=== PATIENT | male | born 1960 | race African-American/Black ===

== ENCOUNTER 2021-10-01 01:02 | Emergency (ER) | payer OTHER ==
[~2021-10-01] VITALS: Ht 170.2 cm; Wt 110.7 kg
[2021-10-01 01:05] VITALS: BP 139/90
--- NOTE | 2021-10-01 01:08 | NUR ---
to lobby a/w bed ambulatory
--- NOTE | 2021-10-01 02:45 | NUR ---
Patient returned back form radiology dept.
--- NOTE | 2021-10-01 03:05 | NUR ---
Patient ambulated to bed 3.
--- NOTE | 2021-10-01 03:19 | NUR ---
61/M C/O RIGHT INTERMITTENT THROBBING, HIP PAIN 8/10, RAD TO THE RLE. PATIENT STATED "IT FEELS LIKE TINGLING AND NUMBNESS ON THE AREA, IT COMES AND IT GOES. ITS BEEN ONGOING FOR YEARS AFTER I GOT A SPINAL INFECTION." GUEVARA STATED THAT HE HAS AN APPT TO SEE A SPINAL SPECIALIST LATER TODAY FOR FURTHER TX, JUST WANTED A SECOND OPINION TODAY. JACQUELINEZiyad IN BED, SIDE RAIL UP FOR SAFETY. ALL NEEDS MET AT THIS TIME. PMHX SPINAL INFECTION, MRSA, HTN, SHOULDER SX MEDS ALODIPINE, LISINOPRIL NKA
--- NOTE | 2021-10-01 03:42 | NUR ---
TIANNA PEREZ AT BEDSIDE.
[2021-10-01] MEDS ORDERED: oxyCODONE/APAP 5/325 MG 1 TAB TAB PO ONE (03:55)
[2021-10-01] MEDS ORDERED: predniSONE 20 MG TAB PO ONE (03:55)
[2021-10-01] MEDS ORDERED: ACET-5629 PO (03:59)
[2021-10-01] MEDS ORDERED: PRED20TA5 PO (03:59)
--- NOTE | 2021-10-01 04:05 | NUR ---
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
[2021-10-01 04:28] VITALS: BP 139/90
--- NOTE | 2021-10-01 04:28 | NUR ---
Patient discharged with v/s stable. Written and verbal after care instructions given and explained. Patient alert, oriented and verbalized understanding of instructions. Ambulatory with steady gait. All questions addressed prior to discharge. ID band removed. Patient advised to follow up with PMD. Rx of PERCOCET AND PREDNISONE given. Patient educated on indication of medication including possible reaction and side effects. Opportunity to ask questions provided and answered.
== END 2021-10-01 04:28 | disposition home or self-care (01) ==
LOC: MED 01:02
DX: M54.16 Radiculopathy, lumbar region (principal); I10 Essential (primary) hypertension; Z98.890 Other specified postprocedural states
CPT/HCPCS: 73502; 99283; J7512

== ENCOUNTER 2021-12-03 05:20 | Emergency (ER) | payer OTHER ==
[~2021-12-03] VITALS: Ht 170.2 cm; Wt 112.5 kg
[~2021-12-03 05:20] MED LIST: ACET-5629 PO; PRED20TA5 PO
[2021-12-03 05:33] VITALS: BP 149/100
--- NOTE | 2021-12-03 05:45 | NUR ---
pt ambulated to bed 11
--- NOTE | 2021-12-03 05:47 | NUR ---
dr garcia examining pt
--- NOTE | 2021-12-03 05:47 | NUR ---
61 y/o male bibs from home, c/o chronic pain to lower back. pt states the pain radiates mostly down right leg and some to left leg. 7/10 pain in lower back, 10/10 in right leg. pt states pain is constant and sharp. pt ambulates with use of cane. cms intact, no trauma noted, no deformity , redness, or bruising. hx: laminectomy, arthritis, htn nka med: sara james
[2021-12-03] MEDS ORDERED: KETOROLAC 30 MG/ML VIAL IM ONE (05:55)
[2021-12-03] MEDS ORDERED: BACLOFEN 10 MG TAB PO SCH (05:55)
[2021-12-03] MEDS ORDERED: predniSONE 20 MG TAB PO ONE (05:55)
[2021-12-03] MEDS ORDERED: LIDOCAINE 5% 1 EA PATCH TP SCH (05:55)
[2021-12-03] MEDS ORDERED: HYDR-5080 PO (05:58)
[2021-12-03] MEDS ORDERED: BACL10TA4 PO (05:58)
[2021-12-03] MEDS ORDERED: EMLAC TP (05:58)
[2021-12-03] MEDS ORDERED: PRED20TA5 PO (05:58)
[2021-12-03 06:22] VITALS: BP 138/96
--- NOTE | 2021-12-03 06:24 | NUR ---
Patient discharged with v/s stable. Written and verbal after care instructions given and explained. Patient alert, oriented and verbalized understanding of instructions. Ambulatory with steady gait. All questions addressed prior to discharge. ID band removed. Patient advised to follow up with PMD. Rx of BACLOFEN, LIDOCAINE/PRILOCAINE, NORCO, DELTASONE given. Patient educated on indication of medication including possible reaction and side effects. Opportunity to ask questions provided and answered. VSS,A/OX4, UNLABORED BREATHING, AMBULATORY, AND CALM DEMEANOR.
== END 2021-12-03 06:24 | disposition home or self-care (01) ==
LOC: MED 05:20
DX: M54.16 Radiculopathy, lumbar region (principal); I10 Essential (primary) hypertension; Z98.890 Other specified postprocedural states; Z79.899 Other long term (current) drug therapy; Z79.891 Long term (current) use of opiate analgesic
CPT/HCPCS: 96372; 99284; J1885; J7512

== ENCOUNTER 2022-02-19 16:11 | Emergency (ER) | payer OTHER ==
[~2022-02-19] VITALS: Ht 172.7 cm; Wt 83.9 kg
[~2022-02-19 16:11] MED LIST changes: +BACL10TA4 PO; +EMLAC TP; +HYDR-5080 PO
[2022-02-19 16:21] VITALS: BP 178/104
--- NOTE | 2022-02-19 17:04 | NUR ---
Dr. Case evaluating patient at bedside.
--- NOTE | 2022-02-19 17:11 | NUR ---
61 y/o male bib self with c/o low back pain that radiates to bilateral thighs. Patient has chronic pain. Patient had MRI that needs to be read from [facility]. Medical History: Laminectomy, HTN NKDA
[2022-02-19] MEDS ORDERED: KETOROLAC 15 MG/ML VIAL IM ONE (17:15)
[2022-02-19] MEDS ORDERED: methylPREDNISolone SS 125 MG in WATER STERILE 2 ML IM ONE (17:15)
[2022-02-19] MEDS ORDERED: oxyCODONE/APAP 5/325 MG 1 TAB TAB PO ONE (17:15)
[2022-02-19] MEDS ORDERED: methylPREDNISolone SS 125 MG/2 ML VIAL ONE (17:18)
[2022-02-19] MEDS ORDERED: WATER STERILE 10 ML MC ONE (17:18)
[2022-02-19] MEDS ORDERED: DICL100G5 TP (18:10)
[2022-02-19] MEDS ORDERED: PRED20TA5 PO (18:10)
[2022-02-19] MEDS ORDERED: LID5T TP (18:10)
[2022-02-19 18:23] VITALS: BP 146/100
--- NOTE | 2022-02-19 18:23 | NUR ---
Patient discharged with v/s stable. Written and verbal after care instructions given. Patient alert, oriented and verbalized understanding of instructions. Ambulatory with steady gait. All questions addressed prior to discharge. ID band removed. Patient advised to follow up with PMD. Rx of Lidoderm, Deltasone and Diclofenac given. Opportunity to ask questions provided and answered.
--- NOTE | 2022-02-19 18:36 | NUR ---
The patient's care was reviewed and supervised by ED Agency Nurse 8, RN, RN.
== END 2022-02-19 18:23 | disposition home or self-care (01) ==
LOC: MED 16:11
DX: M54.16 Radiculopathy, lumbar region (principal); G89.29 Other chronic pain; I10 Essential (primary) hypertension; Z79.899 Other long term (current) drug therapy; Z98.890 Other specified postprocedural states
CPT/HCPCS: 96372; 99284; J1885; J2930

== ENCOUNTER 2022-03-04 11:31 | Emergency (ER) | payer OTHER ==
[~2022-03-04] VITALS: Ht 170.2 cm; Wt 112.9 kg
[~2022-03-04 11:31] MED LIST changes: +DICL100G5 TP; +LID5T TP
[2022-03-04 11:38] VITALS: BP 148/99
--- NOTE | 2022-03-04 11:55 | NUR ---
61 Y/O MALE BIB SELF C/O SORE THROAT AND PRODUCTIVE COUGH X2DAYS, STATES THAT EXUDATE IS MUCUS WHITE IN COLOR. C/O CHRONIC LEG PAIN AND WANTS PAIN MEDICATION. DENIES ACUTE TRAUMA/INJURY pmh: htn, herniated disk, spine sx, shoulder sx nka med: denies
--- NOTE | 2022-03-04 12:14 | NUR ---
REGAN CANTU AT BEDSIDE
[2022-03-04] MEDS ORDERED: KETOROLAC 30 MG/ML VIAL IM ONE (12:30)
[2022-03-04] MEDS ORDERED: IBUP-2213 PO (12:38)
[2022-03-04] MEDS ORDERED: PENI500T20 PO (12:38)
[2022-03-04] MEDS ORDERED: LIDO100S PO (12:38)
--- NOTE | 2022-03-04 13:12 | NUR ---
Patient discharged with v/s stable. Written and verbal after care instructions given and explained. Patient alert, oriented and verbalized understanding of instructions. Ambulatory with steady gait. All questions addressed prior to discharge. ID band removed. Patient advised to follow up with PMD. Rx of LIDOCAINE VISCOUS, PENICILLIN V POTASSIUM, IBUPROFEN given. Patient educated on indication of medication including possible reaction and side effects. Opportunity to ask questions provided and answered.
== END 2022-03-04 13:12 | disposition home or self-care (01) ==
LOC: MED 11:31
DX: J02.0 Streptococcal pharyngitis (principal); I10 Essential (primary) hypertension; J45.909 Unspecified asthma, uncomplicated; Z79.899 Other long term (current) drug therapy
CPT/HCPCS: 87081; 96372; 99283; J1885

== ENCOUNTER 2022-08-15 09:50 | Emergency (ER) | payer OTHER ==
[~2022-08-15] VITALS: Ht 170.2 cm; Wt 112.0 kg
[~2022-08-15 09:50] MED LIST changes: +IBUP-2213 PO; +LIDO100S PO; +PENI500T20 PO
[2022-08-15 09:53] VITALS: BP 158/101
[2022-08-15] MEDS ORDERED: KETOROLAC 15 MG/ML VIAL IM ONE (10:35)
--- NOTE | 2022-08-15 10:48 | NUR ---
PT C/O RT HIP PAIN X 2YRS, POST BACK SURGERY. CP X 2MTHS INTERMITTENT SHARP. NAD.
[2022-08-15 10:54] LABS: BASOPHILS # (AUTO) 0.1 K/uL (0.00-0.22); BASOPHILS % (AUTO) 1.4 % (0.0-2.0); EOSINOPHILS # (AUTO) 0.3 K/uL (0-0.4); EOSINOPHILS % (AUTO) 4.2 % (0.0-4.0); HEMATOCRIT 42.6 % (36-52); HEMOGLOBIN 14.6 g/dL (12.0-18.0); LYMPHOCYTES # (AUTO) 1.1 K/uL (2.0-11.5); LYMPHOCYTES % (AUTO) 18.4 % (20.5-51.1); MEAN CORPUSCULAR HEMOGLOBIN 31 pg (27-31); MEAN CORPUSCULAR HGB CONC 34 g/dL (33-37); MEAN CORPUSCULAR VOLUME 91.5 fL (80-94); MONOCYTES # (AUTO) 0.9 K/uL (0.8-1.0); NEUTROPHILS # (AUTO) 3.8 K/uL (1.8-7.7); PLATELET COUNT (AUTO) 218 K/uL (140-450); RED BLOOD CELL COUNT(AUTO) 4.66 MIL/uL (4.20-6.10); RED CELL DISTRIBUTION WIDTH 14.8 % (11.6-13.7); WHITE BLOOD COUNT (AUTO) 6.1 K/uL (4.8-10.8)
[2022-08-15 11:11] LABS: ANION GAP 10.2 (8-16); ASPARTATE AMINOTRANSFERASE 23 U/L (15-37); CARBON DIOXIDE 30.8 mmol/L (21-32); CHLORIDE 103 mmol/L (98-107); GFR ARICAN-AMERICAN 98 mL/min (>90); GLUCOSE 97 mg/dL (74-106); SODIUM SERUM 140 mmol/L (136-145); TOTAL BILIRUBIN 0.4 mg/dL (0.0-1.0); UREA NITROGEN, BLOOD 11 mg/dL (7-18)
[2022-08-15] MEDS ORDERED: ACET-8905 PO (13:23)
[2022-08-15] MEDS ORDERED: METH-1681 PO (13:23)
[2022-08-15] MEDS ORDERED: LID5T TP (13:23)
[2022-08-15] MEDS ORDERED: PRED20TA5 PO (13:28)
[2022-08-15 13:44] VITALS: BP 120/68
--- NOTE | 2022-08-15 13:46 | NUR ---
Note memoone in EDM - 08/15/22 at 1358 by [email or web address] Patient discharged with v/s stable. Written and verbal after care instructions given and explained. A/OX4,verbalized understanding of instructions. Ambulatory with steady gait. All questions addressed prior to discharge. ID band removed. Patient advised to follow up with PMD. Rx of DYDROCODONE, LIDOCAINE given. Patient educated on indication of medication including possible reaction and side effects. Opportunity to ask questions provided and answered.
--- NOTE | 2022-08-15 13:57 | NUR ---
Patient discharged with v/s stable. Written and verbal after care instructions given and explained. Patient alert, oriented and verbalized understanding of instructions. Ambulatory with steady gait. All questions addressed prior to discharge. ID band removed. Patient advised to follow up with PMD. Rx of HYDROCOKINE/ACETAMINOPHIN, LIDOCAINE PATCH,METHOCARBAMOL given. Patient educated on indication of medication including possible reaction and side effects. Opportunity to ask questions provided and answered.
== END 2022-08-15 09:55 | disposition home or self-care (01) ==
LOC: MED 09:50
DX: M54.16 Radiculopathy, lumbar region (principal); R07.9 Chest pain, unspecified; I10 Essential (primary) hypertension; Z79.899 Other long term (current) drug therapy; Z98.890 Other specified postprocedural states
CPT/HCPCS: 36415; 71045; 80053; 84484; 85025; 93005; 96372; 99285; J1885

== ENCOUNTER 2022-10-14 13:10 | Emergency (ER) | payer OTHER ==
[~2022-10-14] VITALS: Ht 175.3 cm; Wt 90.7 kg
[~2022-10-14 13:10] MED LIST changes: +ACET-8905 PO; +METH-1681 PO
--- NOTE | 2022-10-14 13:11 | NUR ---
PT BIBA/ALS TO BED 7
[2022-10-14 13:13] VITALS: BP 137/95; PULSE 94; RESP 17; TEMP 97.4; O2SAT 97
--- NOTE | 2022-10-14 13:31 | NUR ---
PT BIB ALS RUN FROM HOME C/O GENERALIZED WEAKNESS, DIZZINESS S/P TAKING CBD GUMMIES LAST NIGHT. PT ALSO C/O EPIGASTRIC PAIN WITH NAUSEA. BREATHING UNLABORED. NAD. SAFETY MAINTAINED.
--- NOTE | 2022-10-14 13:46 | NUR ---
62YO M BIBA PRESENTS W/CHEST PRESSURE, SOB, NAUSEA EPIGASTRIC DISCOMFORT SINCE LAST NIGHT AFTER TAKING A GUMMY OF WEED. PT DENIES V,D, FEVER, CHILLS, DIZZINESS, TRAUMA, GUILLEN, URINARY SYMPTOMS, FLU SYMPTOMS. PT STATES HE TOOK 4 CBD GUMMIES THINKING "IT WAS GOOD FOR PAIN" AND STATES "I FEEL LIKE I'M HIGH." NAD NOTED, SAFETY MAINTAINED. NKA
[2022-10-14 13:51] LABS: BASOPHILS # (AUTO) 0.1 K/uL (0.00-0.22); EOSINOPHILS # (AUTO) 0.1 K/uL (0-0.4); EOSINOPHILS % (AUTO) 0.6 % (0.0-4.0); HEMATOCRIT 41.9 % (36-52); HEMOGLOBIN 14.3 g/dL (12.0-18.0); LYMPHOCYTES # (AUTO) 0.7 K/uL (2.0-11.5); LYMPHOCYTES % (AUTO) 7.1 % (20.5-51.1); MEAN CORPUSCULAR HEMOGLOBIN 32 pg (27-31); MEAN CORPUSCULAR HGB CONC 34 g/dL (33-37); MONOCYTES # (AUTO) 0.6 K/uL (0.8-1.0); MONOCYTES % (AUTO) 6.3 % (1.7-9.3); NEUTROPHILS # (AUTO) 8.2 K/uL (1.8-7.7); PLATELET COUNT (AUTO) 207 K/uL (140-450); RED BLOOD CELL COUNT(AUTO) 4.51 MIL/uL (4.20-6.10); RED CELL DISTRIBUTION WIDTH 14.5 % (11.6-13.7); WHITE BLOOD COUNT (AUTO) 9.7 K/uL (4.8-10.8)
[2022-10-14 14:12] LABS: ALBUMIN 3.9 g/dL (3.4-5.0); ANION GAP 10.9 (8-16); CARBON DIOXIDE 29.9 mmol/L (21-32); CREATININE 0.9 mg/dL (0.6-1.3); POTASSIUM 3.8 mmol/L (3.5-5.1); TOTAL BILIRUBIN 0.3 mg/dL (0.0-1.0)
[2022-10-14 14:16] LABS: LIPASE 62 U/L (73-393)
[2022-10-14] MEDS ORDERED: NACL 0.9% 1,000 ML IV ONE (14:30)
[2022-10-14 16:12] VITALS: O2SAT 96
[2022-10-14 16:17] VITALS: BP 129/85; PULSE 75; RESP 15; O2SAT 99
--- NOTE | 2022-10-14 16:37 | NUR ---
The patient's care was reviewed and supervised by [place] 05 KENJI, RN.
--- NOTE | 2022-10-14 16:38 | NUR ---
Patient discharged with v/s stable. Written and verbal after care instructions given and explained. Patient verbalized understanding. Ambulatory with steady gait. All questions addressed prior to discharge. Advised to follow up with PMD.
== END 2022-10-14 16:37 | disposition home or self-care (01) ==
LOC: EDBD → MERGE 13:10 → MED 13:10
DX: T40.711A Poisoning by cannabis, accidental (unintentional), initial encounter (principal); R07.89 Other chest pain; R10.13 Epigastric pain; G89.29 Other chronic pain; M54.9 Dorsalgia, unspecified; I10 Essential (primary) hypertension; Z98.890 Other specified postprocedural states; Z79.899 Other long term (current) drug therapy; Z79.1 Long term (current) use of non-steroidal anti-inflammatories (NSAID); Z79.2 Long term (current) use of antibiotics; Y92.89 Other specified places as the place of occurrence of the external cause
CPT/HCPCS: 36415; 71045; 80053; 83690; 83880; 84484; 85025; 93005; 96360; 99285; J7030; Q0092

== ENCOUNTER 2023-03-20 11:25 | Emergency (ER) | payer OTHER ==
[~2023-03-20] VITALS: Ht 171.4 cm; Wt 113.9 kg
[~2023-03-20 11:25] MED LIST changes: +DICL100G32 TP; -DICL100G5 TP
[2023-03-20 11:33] VITALS: BP 136/87; PULSE 100; RESP 20; TEMP 97.9; O2SAT 95
[2023-03-20] MEDS ORDERED: DIPRC TP (12:17)
[2023-03-20] MEDS ORDERED: FAMO-92 PO (12:17)
[2023-03-20] MEDS ORDERED: ALUMINUM HYD/MAG/SIMETHICONE 30 ML UDC PO ONE (12:20)
[2023-03-20] MEDS ORDERED: FAMOTIDINE 20 MG TAB PO ONE (12:20)
== END 2023-03-20 12:30 | disposition home or self-care (01) ==
LOC: MED 11:25
DX: S80.862A Insect bite (nonvenomous), left lower leg, initial encounter (principal); S80.861A Insect bite (nonvenomous), right lower leg, initial encounter; S40.862A Insect bite (nonvenomous) of left upper arm, initial encounter; S40.861A Insect bite (nonvenomous) of right upper arm, initial encounter; S30.860A Insect bite (nonvenomous) of lower back and pelvis, initial encounter; K21.9 Gastro-esophageal reflux disease without esophagitis; I10 Essential (primary) hypertension; Z79.899 Other long term (current) drug therapy; Z79.1 Long term (current) use of non-steroidal anti-inflammatories (NSAID); Z79.2 Long term (current) use of antibiotics; W57.XXXA Bitten or stung by nonvenomous insect and other nonvenomous arthropods, initial encounter; Y92.89 Other specified places as the place of occurrence of the external cause; Y93.89 Activity, other specified; Y99.8 Other external cause status
CPT/HCPCS: 99283

== ENCOUNTER 2023-08-26 01:40 | Emergency (ER) | payer MEDICARE, OTHER ==
[~2023-08-26] VITALS: Ht 167.6 cm; Wt 114.8 kg
[~2023-08-26 01:40] MED LIST changes: +DIPRC TP; +FAMO-92 PO
[2023-08-26 01:46] VITALS: BP 155/106; PULSE 92; RESP 16; TEMP 97.8; O2SAT 97
[2023-08-26] MEDS: ACETAMIN/CODEINE 120/12MG-5ML 5 ML UDC PO ONE (03:46)
[2023-08-26] MEDS: BACITRACIN OINT 500 UNITS/GM PKT TP ONE (03:46)
[2023-08-26] MEDS ORDERED: ALBUTEROL SULFATE/IPRATROPIU 3 ML SOL IH ONE (04:10)
[2023-08-26] MEDS: ALBUTEROL SULFATE/IPRATROPIU 3 ML SOL IH ONE ×2 (04:17→04:20)
[2023-08-26 04:32] VITALS: PULSE 90; RESP 22; O2SAT 98
[2023-08-26] MEDS ORDERED: ROBAC PO (04:36)
[2023-08-26] MEDS ORDERED: ALBU0.0912 IH (04:36)
[2023-08-26] MEDS ORDERED: AZIT250T4 PO (04:36)
[2023-08-26 04:45] VITALS: BP 132/98; PULSE 90; RESP 22; TEMP 98; O2SAT 98
== END 2023-08-26 04:45 | disposition home or self-care (01) ==
LOC: MED 01:40
DX: J20.9 Acute bronchitis, unspecified (principal); R51.9 Headache, unspecified; I10 Essential (primary) hypertension; Z79.899 Other long term (current) drug therapy
CPT/HCPCS: 71045; 94640; 99285

== ENCOUNTER 2023-11-16 11:12 | Emergency (ER) | payer MEDICARE, OTHER ==
[~2023-11-16] VITALS: Ht 167.6 cm; Wt 113.6 kg
[~2023-11-16 11:12] MED LIST changes: +ALBU0.0912 IH; +AZIT250T4 PO; +ROBAC PO
[2023-11-16 11:23] VITALS: BP 150/96; PULSE 85; RESP 19; TEMP 97.8; O2SAT 96
[2023-11-16] MEDS: KETOROLAC 30 MG/ML VIAL IM ONE (12:02)
[2023-11-16 12:30] LABS: APPEARANCE,URINE CLEAR (CLEAR); BILIRUBIN,URINE NEGATIVE (NEGATIVE); BLOOD, URINE NEGATIVE (NEGATIVE); COLOR,URINE YELLOW (YELLOW); LEUKOCYTE ESTERASE ,URINE NEGATIVE (NEGATIVE); NITRITE, URINE NEGATIVE (NEGATIVE); PROTEIN,URINE NEGATIVE (NEGATIVE); UGLUCOSE NEGATIVE (NEGATIVE); UROBILINOGEN,URINE 0.2 EU/dL (0.2 - 1)
[2023-11-16 13:40] VITALS: BP 145/88; PULSE 85; RESP 19; TEMP 98.1
[2023-11-16 14:15] VITALS: O2SAT 96
[2023-11-16] MEDS ORDERED: ACET-5629 PO (14:42)
== END 2023-11-16 15:06 | disposition home or self-care (01) ==
LOC: MED 11:12
DX: G89.29 Other chronic pain (principal); M54.50 Low back pain, unspecified; R10.9 Unspecified abdominal pain; I10 Essential (primary) hypertension; Z98.890 Other specified postprocedural states; Z79.1 Long term (current) use of non-steroidal anti-inflammatories (NSAID); Z79.2 Long term (current) use of antibiotics; Z79.899 Other long term (current) drug therapy
CPT/HCPCS: 81003; 96372; 99283; J1885